=== PATIENT | female | born 1970 | race Caucasian/White ===

== ENCOUNTER → 2016-12-26 | Outpatient (CLI) | payer OTHER ==
[~2016-12-26] MED LIST: ATENOLOL25 MG PO; PAXIL10 MG PO
--- NOTE | 2016-12-26 07:00 | NUR ---
INFORMED CONSENT OBTAINED FOR EXERCISE STRESS ECHO WITH DR. YANES. RESTING EKG NSR WITH A RESTING HR OF 66 WITH BP OF 122/74 AND HR OF 87 WITH BP 134/[address] YANES ORDERED NO IV FOR TESTING. PT COMPLETED 7:00 OF A 2:00 MONIQUE PROTOCOL WITH WALKING 1:00 OF STAGE IV AT 4.2 MPH WITH 16% GRADE. REAHCED A PEAK HR OF 148 WHICH IS 86% OF PREDICTED MAX WITH A PEAK BP OF 174/92. HAD NO CHEST PAIN OR ANY EKG CHANGES. HAS A GOOD EXERCISE TOLERANCE. SEE DICTATION FOR FULL REPORT OF STRESS ECHO. NEGATIVE STRESS ECHO. LAST RECOVERY HR OF 80 WITH BP OF 128/70. DISCHARGED IN STABLE CONDITION.
== END | disposition home or self-care (01) ==
LOC: CARD 02:25
DX: R07.89 Other chest pain (principal)

== ENCOUNTER → 2018-06-10 | Outpatient (CLI) | payer OTHER ==
--- NOTE | ~2018-06-10 | HM ---
[place], [place] HOLTER MONITOR REPORT NAME: SOFY JONES UNIT #: [id number] ROOM: DOCTOR: SWAPNIL YANES MD BIRTHDATE: [birth year] DOS: 06/11/2018 24-HOUR HOLTER MONITOR The patient remained in sinus rhythm throughout the entire period. Minimum heart rate is 43, maximum heart rate is 135, average of 74 beats per minute. The patient had no significant ventricular or supraventricular dysrhythmia. Had some atrial pairs, 22 events, no supraventricular arrhythmia, isolated PACs. No significant pauses. Few episodes of sinus tachycardia. FINAL IMPRESSION: Sinus rhythm with few episodes of sinus tachycardia. No ventricular or supraventricular dysrhythmia. No significant pauses. Grossly normal Holter monitor. SWAPNIL YANES MD CM:HOLTER:HOLTER MONITOR REPORT [id number] SWAPNIL YANES MD
== END | disposition home or self-care (01) ==
LOC: CARD 06-05 14:00
DX: R00.2 Palpitations (principal)

== ENCOUNTER → 2023-06-19 | Outpatient (CLI) | payer OTHER | END | disposition home or self-care (01) | LOC: CARD 01:26 | PROVIDERS: ATTEND Internal Medicine Cardiovascular Disease | DX: R07.81 Pleurodynia (principal); E78.49 Other hyperlipidemia ==